=== PATIENT | male | born 1995 | race Caucasian/White ===

== ENCOUNTER 2021-01-17 14:52 | Emergency (ER) | payer BC | END 2021-01-17 15:50 | disposition home or self-care (01) | LOC: ERS 14:52 | DX: R11.2 Nausea with vomiting, unspecified (principal); F17.210 Nicotine dependence, cigarettes, uncomplicated | CPT/HCPCS: 99281 ==

== ENCOUNTER 2021-02-15 02:31 | Emergency (ER) | payer BC, SELFPAY ==
[2021-02-15] MEDS ORDERED: Lidocaine 1% w/Epinephrine 1:100K 20 ML VIAL ONE (02:56)
[2021-02-15] MEDS ORDERED: Bupivacaine 0.5% 10 ML VIAL ONE (02:58)
[2021-02-15] MEDS ORDERED: Lidocaine 1% PF 5 ML VIAL ONE (02:58)
== END 2021-02-15 03:20 | disposition home or self-care (01) ==
LOC: ERS 02:31
DX: K02.9 Dental caries, unspecified (principal); K08.89 Other specified disorders of teeth and supporting structures; F17.210 Nicotine dependence, cigarettes, uncomplicated
CPT/HCPCS: 64400; J3490

== ENCOUNTER 2021-07-20 12:36 | Emergency (ER) | payer SELFPAY ==
[2021-07-20 19:06] LABS: SARS-CoV-2 PCR by NAA Not Detected (NotDetected)
== END 2021-07-20 13:30 | disposition home or self-care (01) ==
LOC: ERS 12:36
DX: R05 Cough (principal); R51.9 Headache, unspecified; R09.81 Nasal congestion; Z20.822 Contact with and (suspected) exposure to COVID-19; Z87.891 Personal history of nicotine dependence
CPT/HCPCS: 99284; U0003; U0005

== ENCOUNTER 2021-10-15 13:45 | Emergency (ER) | payer BC, SELFPAY ==
[2021-10-15] MEDS ORDERED: Ketorolac Tromethamine 30 MG/ML VIAL ONE (15:24)
== END 2021-10-15 16:05 | disposition home or self-care (01) ==
LOC: ERS 13:45
DX: S93.402A Sprain of unspecified ligament of left ankle, initial encounter (principal); Z87.891 Personal history of nicotine dependence; X50.1XXA Overexertion from prolonged static or awkward postures, initial encounter; Y93.51 Activity, roller skating (inline) and skateboarding
CPT/HCPCS: 96372; J1885